=== PATIENT | male | born 1990 | race Caucasian/White ===

== ENCOUNTER 2024-01-26 10:29 | Emergency (ER) | payer SELFPAY ==
[2024-01-26] MEDS: Diphtheria,Pertussis(Acell),Tetanus Vaccine 0.5 ML Syringe IM ONE (11:03)
[2024-01-26] MEDS: Lidocaine 1% 5 ML VIAL INJECT STA ×2 (11:19→11:29)
[2024-01-26] MEDS: Lidocaine 1% 5 ML VIAL ONE (11:37)
== END 2024-01-26 12:13 | disposition home or self-care (01) ==
LOC: MW.ED 10:29
DX: S61.012A Laceration without foreign body of left thumb without damage to nail, initial encounter (principal); Z23 Encounter for immunization; Z75.8 Other problems related to medical facilities and other health care; W26.8XXA Contact with other sharp object(s), not elsewhere classified, initial encounter
CPT/HCPCS: 12004; 90471; 90715; 99282-25; 99283; J3490